=== PATIENT | female | born 1950 | race African-American/Black ===

== ENCOUNTER 2023-11-08 14:59 | Emergency (ER) | payer MEDICARE, SELFPAY ==
--- NOTE | ~2023-11-08 | XR_ITS ---
EXAMINATION: XR CHEST CLINICAL INFORMATION: Weakness COMPARISON: None available. TECHNIQUE: Frontal view of the chest was obtained. FINDINGS: The lungs are hyperinflated but clear of acute process. Heart size enlarged. Pulmonary vascularity is normal. No gross bony abnormality seen. XR/XR chest 1V IMPRESSION: 1. Hyperinflated lungs without acute process. 2. Mild cardiomegaly.
--- NOTE | 2023-11-08 15:49 | ED.GENADULT ---
HPI - General Adult General Chief complaint: General Medical Stated complaint: elevated bp,dizziness,sob Time Seen by Provider: 11/08/23 18:15 Source: patient and family Mode of arrival: ambulatory Limitations: no limitations History of Present Illness HPI narrative: Patient history of hypertension AFib on Eliquis valsartan and metoprolol been on same dosage for a while blood pressure usually well controlled yesterday evening visiting nurse came and checked the blood pressure was elevated 200/140 and again today in a.m. blood pressure recheck was elevated 200/130 patient asymptomatic as such does have slight shortness of breath on exertion used to be on furosemide which were discontinued in August no leg swelling no chest pain no palpitation Related Data Home Medications Medication Instructions Recorded Confirmed Vitamin D3 1,000 units PO DAILY 11/08/23 11/08/23 apixaban 5 mg tablet (Eliquis) 5 mg PO BEDTIME 11/08/23 11/08/23 atorvastatin 20 mg tablet 20 mg PO BEDTIME 11/08/23 11/08/23 duloxetine 60 mg capsule,delayed 60 mg PO DAILY 11/08/23 11/08/23 release lidocaine 4 % topical patch 1 patch topical DAILY PRN Mild 11/08/23 11/08/23 Pain (Scale Score 1-4) metoprolol tartrate 25 mg tablet 25 mg PO DAILY 11/08/23 11/08/23 pregabalin 150 mg capsule 150 mg PO BEDTIME 11/08/23 11/08/23 valsartan 160 mg tablet 160 mg PO DAILY 11/08/23 11/08/23 Previous Rx's Medication Instructions Recorded hydrochlorothiazide 12.5 mg tablet 12.5 mg PO QAM #90 tabs 11/08/23 Allergies Allergy/AdvReac Type Severity Reaction Status Date / Time No Known Allergies Allergy Verified 11/13/23 18:00 Review of Systems Review of Systems: Yes all other systems are reviewed and are negative PMFSH Social History Social History Smoked in Last 30 Days: No Use of substances other than those prescribed or required for medical reasons: No Advance Directives: No Advance Directives Information Provided: Yes Physical Exam ED Vital Signs: Vital Signs - 24 hr 11/08/23 15:51 11/08/23 18:16 11/08/23 18:29 Temperature 97.6 F 97.6 F Pulse Rate 97 99 89 Respiratory Rate 16 16 17 Blood Pressure 144/72 H 163/96 H 166/82 H Pulse Oximetry 97 97 Oxygen Delivery Method Room Air Room Air BMI result Body Mass Index 32.3 Appearance: Alert. Oriented X3. No acute distress. Eyes: No pallor or icterus ENT: Pharynx normal. Oral Mucosa moist Neck: Normal inspection. Neck supple. CVS: Irregularly irregular heart rate. Pulses normal. Respiratory: No respiratory distress. Equal air entry bilateral, no wheezing/rales/rhonchi Abdomen: Soft and nontender. Bowel sounds are present, no mass palpable, Skin: Skin warm and dry. Normal skin color. Normal skin turgor. Extremities: No lower extremity edema. No calf tenderness Neuro: Oriented X 3. No motor deficit. Course Course Course Narrative: RME: C/o weakness and lightheadedness. BP 200s/100s per visiting nurse. Has been compliant with medications per pt. On anticoagulants. Fall 3 months ago. Seen at [facility] and diagnosed with a brain aneurysm. Plans for management of aneurysm with preop workup being completed. Recently evaluated at [facility] Medical Decision Making Medical Decision Making [facility] Narrative: Patient with transient elevated blood pressure asymptomatic as such blood pressure improved during stay in the ER without any medication Patient repeat blood pressure 148/77 heart rate 70 will advised to continue same medications at hydrochlorothiazide 12.5 mg in a.m.. Differential Diagnosis Differential Diagnoses: The differential diagnosis associated with the presentation includes Accelerated hypertension/uncontrolled hypertension Admission/Observation Consideration of admission/observation: Escalation of care including admission/observation considered Lab Data [facility] Lab Attestation statement: I reviewed the patient's lab results. 11/08/23 16:16 11/08/23 16:16 Labs: Lab Results 11/08/23 Range/Units 16:16 WBC 10.0 (4.8-10.8) X10*3/uL RBC 3.75 L (4.20-5.50) X10*6/uL Hgb 11.4 L (12.0-16.0) g/dl Hct 34.7 L (37.0-47.0) % MCV 92.5 (80.0-98.0) fL MCH 30.4 (27.0-33.0) pg MCHC 32.9 (31.0-35.0) g/dl RDW 14.5 (11.0-16.0) % Plt Count 397 (160-400) X10*3/uL MPV 9.3 L (9.4-12.3) fL Immature Gran % (Auto) 0.5 H (0.0-0.4) % Neut % (Auto) 53.1 (45-73) % Lymph % (Auto) 35.6 (20-40) % Bates % (Auto) 8.5 (2-11) % Eos % (Auto) 1.7 (0-4) % Baso % (Auto) 0.6 (0-2) % Lymph # (Auto) 3.6 (1.2-4.9) X10*3/uL Bates # (Auto) 0.9 (0.1-1.2) X10*3/uL Eos # (Auto) 0.2 (0.0-0.4) X10*3/uL Baso # (Auto) 0.1 (0.0-0.2) X10*3/uL Abs Immat Gran (auto) 0.05 H (0.00-0.03) X10*3/uL Absolute Neuts (auto) 5.3 (2.0-8.3) x10*3/uL Absolute Nucleated RBC 0.000 (0.0-0.012) X10*3/uL Nucleated RBC % (auto) 0.0 (0.0-0.2) /100WBC Sodium 135 (135-145) mmol/L Potassium 3.6 (3.3-5.1) mmol/L Chloride 101 (96-108) mmol/L Carbon Dioxide 26 (22-29) mmol/L Anion Gap 12 (12-20) BUN 12 (9-16) mg/dL Creatinine 1.00 (0.5-1.4) mg/dL Estim Creat Clear Calc 42.8 Estimated GFR 54 Random Glucose 150 H (60-115) mg/dL Calcium 9.1 (8.4-10.2) mg/dL Total Bilirubin 0.7 (0.0-1.0) mg/dL AST 10 (5-31) U/L ALT 9 (0-31) U/L Alkaline Phosphatase 77 (39-117) U/L Troponin I High Sens 16.7 (<3.5-17.0) ng/L B-Natriuretic Peptide 353 H (<100) pg/mL Total Protein 7.2 (6.5-8.0) g/dL Albumin 3.4 L (3.5-5.0) g/dL Independent Interpretation I performed an independent interpretation of an: EKG Interpretation: Atrial fibrillation ventricular rate 84 beats per minute nonspecific ST T wave changes no acute ST elevation no acute ischemia Discharge Plan Discharge Clinical Impression: Hypertension Patient Disposition: Home, Self-Care Instructions: Chronic Hypertension (ED) Additional Instructions: Continue Lopressor 25 mg daily Start taking hydrochlorothiazide 12.5 mg daily in morning Check blood pressure before taking medication before going to bed Normal blood pressure should be less than 135/85 Follow with your PCP Prescriptions: New hydrochlorothiazide 12.5 mg tablet 12.5 mg PO QAM Qty: 90 0RF No Action atorvastatin 20 mg Tablet 20 mg PO BEDTIME lidocaine 4 % Adhesive Patch,Medicated 1 patch TOPICAL DAILY PRN (Reason: Mild Pain (Scale Score 1-4)) valsartan 160 mg Tablet 160 mg PO DAILY metoprolol tartrate 25 mg Tablet 25 mg PO DAILY duloxetine 60 mg Capsule,Delayed Release(Dr/Ec) 60 mg PO DAILY pregabalin 150 mg Capsule 150 mg PO BEDTIME Eliquis 5 mg Tablet 5 mg PO BEDTIME Vitamin D3 1,000 units PO DAILY Referrals: Piper Quintero MD [Physician] - 2 weeks Valerio Rivas MD [Physician] - 2 weeks Interventions: ED Discharge Assessment Last Done: 11/08/23 19:19 Discharge Date/Time: 11/08/23 19:20
--- NOTE | 2023-11-08 15:50 | ECG_ITS ---
Test Reason : WEAKNESS/LIGHTHEADEDNESS Blood Pressure : / mmHG Vent. Rate : 084 BPM Atrial Rate : 000 BPM P-R Int : 000 ms QRS Dur : 070 ms QT Int : 384 ms P-R-T Axes : 000 039 140 degrees QTc Int : 453 ms Atrial fibrillation Septal infarct , age undetermined ST & T wave abnormality, consider lateral ischemia Abnormal ECG No previous ECGs available Referred By: Lisa Caban Electronically Signed By:TERESITA WATERS
[2023-11-08 15:51] VITALS: BP 144/72; PULSE 97; RESP 16; TEMP 36.4; O2SAT 97; BMI 32.3
[2023-11-08 16:20] LABS: MANUAL DIFF FLAG NO
[2023-11-08 16:22] LABS: Basophils Absolute Auto 0.1 X10*3/uL (0.0-0.2); Basophils Percent Auto 0.6 % (0-2); Eosinophils Absolute Auto 0.2 X10*3/uL (0.0-0.4); Eosinophils Percent Auto 1.7 % (0-4); Hematocrit 34.7 % (37.0-47.0); Hemoglobin 11.4 g/dl (12.0-16.0); Imm Gran Abs Auto 0.05 X10*3/uL (0.00-0.03); Imm Gran Pct Auto 0.5 % (0.0-0.4); Lymphocytes Absolute Auto 3.6 X10*3/uL (1.2-4.9); Lymphocytes Percent Auto 35.6 % (20-40); Mean Corpuscular HGB Conc 32.9 g/dl (31.0-35.0); Mean Corpuscular Hemoglobin 30.4 pg (27.0-33.0); Mean Corpuscular Volume 92.5 fL (80.0-98.0); Mean Platelet Volume 9.3 fL (9.4-12.3); Monocytes Absolute Auto 0.9 X10*3/uL (0.1-1.2); Monocytes Percent Auto 8.5 % (2-11); Neutrophils Absolute Auto 5.3 x10*3/uL (2.0-8.3); Neutrophils Percent Auto 53.1 % (45-73); Platelet Count 397 X10*3/uL (160-400); Red Blood Count 3.75 X10*6/uL (4.20-5.50); Red Cell Distribution Width 14.5 % (11.0-16.0)
[2023-11-08 16:35] LABS: Alanine Aminotransferase 9 U/L (0-31); Albumin Level 3.4 g/dL (3.5-5.0); Alkaline Phosphatase 77 U/L (39-117); Anion Gap 12 (12-20); Aspartate Amino Transferase 10 U/L (5-31); Bilirubin Total 0.7 mg/dL (0.0-1.0); Blood Urea Nitrogen 12 mg/dL (9-16); Calcium 9.1 mg/dL (8.4-10.2); Carbon Dioxide 26 mmol/L (22-29); Chloride 101 mmol/L (96-108); Creatinine Clr Calc Pharmacy 42.8; Estimated Glomerular Filt Rate 54; Glucose Random 150 mg/dL (60-115); Potassium 3.6 mmol/L (3.3-5.1); Sodium 135 mmol/L (135-145); Total Protein 7.2 g/dL (6.5-8.0)
[2023-11-08 16:40] LABS: B Type Natriuretic Peptide 353 pg/mL (<100)
[2023-11-08 16:42] LABS: Troponin-I High Sensitivity 16.7 ng/L (<3.5-17.0)
[2023-11-08 18:16] VITALS: BP 163/96; PULSE 99; RESP 16; TEMP 36.4; O2SAT 97
--- NOTE | 2023-11-08 18:18 | MHC.EDTECH ---
THIS PCT JUST ASSUMED CARE OF PT ,VITALS TAKEN ,PT WAS HOOKED UP TO [facility] PERSON ,AND WAS CHANGE INTO HOSPITAL ATTIRE .
[2023-11-08 18:29] VITALS: BP 166/82; PULSE 89; RESP 17
[2023-11-08 19:18] VITALS: BP 143/73; PULSE 71; RESP 18
== END 2023-11-08 19:20 | disposition home or self-care (01) ==
LOC: HO.ED 19:02
PROVIDERS: Nurse Practitioner Family; Emergency Provider Internal Medicine
DX: R42 Dizziness and giddiness (principal); R06.02 Shortness of breath; I48.91 Unspecified atrial fibrillation; R53.1 Weakness; Z79.01 Long term (current) use of anticoagulants; Z79.899 Other long term (current) drug therapy
CPT/HCPCS: 36415; 71045; 80053; 83880; 84484; 85025; 93005; 99283; 99284

== ENCOUNTER → 2023-11-08 15:50 | Outpatient (BNV) | payer MEDICARE, SELFPAY | PROVIDERS: Emergency Provider Internal Medicine; Visit Provider Internal Medicine | DX: I48.91 Unspecified atrial fibrillation (principal); R94.31 Abnormal electrocardiogram [ECG] [EKG] | CPT/HCPCS: 93010 ==

== ENCOUNTER 2023-11-13 17:29 | Emergency (ER) | payer MEDICARE, SELFPAY ==
--- NOTE | ~2023-11-13 | CT_ITS ---
CT head/brain wo IV con CLINICAL INFORMATION: Reason for Exam Headaches, history of aneurysm, on Eliquis RO blee COMPARISON: No prior CT scan available in our system at this time TECHNIQUE: Department standard protocol. This CT examination was performed using dose optimization techniques as appropriate, variously including the following: *Automated exposure control *Adjustment of mA and/or kV according to patient size (this includes techniques or standardized protocols for targeted exams where dose is matched to indication/reason for exam; i.e. extremities or head) *Use of iterative reconstruction technique DLP: 671 mGy-cm FINDINGS: CEREBRAL HEMISPHERES: There is no evidence of intra-axial or extra-axial mass, hemorrhage or acute infarct. BRAIN PARENCHYMA: Normal roca-white matter differentiation. SUBDURAL SPACE: No bleed. BASAL GANGLIA AND PINEAL GLAND: Unremarkable VENTRICLES: Symmetric and normal in size. CEREBELLUM AND BRAINSTEM: No space-occupying mass, hemorrhage or acute infarct. CEREBELLOPONTINE ANGLES: No lesion found. ORBITS: No intraorbital mass. VESSELS: There is 1.3 cm structure at skull base adjacent to the right side of the [place] concerning for aneurysm of the [place] not well visualized due to lack of contrast, alternatively a mass. This may require correlation with follow-up contrast enhanced MRI and MRA. SKULL BASE: Enlarged pituitary gland with pituitary tissue abutting the pituitary fossa, empty sella. INCLUDED SINUSES AT SKULL BASE: Clear SKULL AND SKIN: No fracture or bone lesion found. CT/CT head/brain wo IV con IMPRESSION: 1. There is 1.3 cm structure at skull base adjacent to the right side of the [place] concerning for aneurysm of the [place] not well visualized due to lack of contrast, alternatively a mass. If no prior imaging is available, Consider further investigation with follow-up contrast enhanced MRI and MRA. 2. Enlarged pituitary gland with pituitary tissue abutting the pituitary fossa, empty sella. 3. No CT evidence of intracranial bleed. Over read by neuroradiologist requested. (Referring physician staff is being called, by physician staff assistance, to be alerted of the above critical findings and recommendations.) Opal Hurley 11/13/2023 6:46 PM
[2023-11-13 17:56] VITALS: BP 121/82; PULSE 86; RESP 18; TEMP 37.1; O2SAT 98; BMI 32.3
--- NOTE | 2023-11-13 17:58 | ED.GENADULT ---
HPI - General Adult General Chief complaint: General Medical Stated complaint: high blood pressure 200/150, seen last th Time Seen by Provider: 11/13/23 22:40 Source: patient and family Mode of arrival: ambulatory History of Present Illness HPI narrative: 73-year-old female is brought in by family members who are concerned regarding her persistently elevated blood pressure, patient is on chronic anticoagulation, has known AVM for which she has a scheduled appointment for treatment, and is typically seen through the [facility] system. The family states that they have had difficulty in getting good communication with the primary care provider but were able to follow-up with the transit authority police officer through a telehealth appointment this morning. The transit authority police officer despite the absence of focal symptoms or chest discomfort recommended that the family bring the patient in for evaluation to the emergency room. Patient has had intermittent, persistent headache/dizziness/lightheadedness. Related Data Home Medications Medication Instructions Recorded Confirmed Vitamin D3 1,000 units PO DAILY 11/08/23 11/08/23 apixaban 5 mg tablet (Eliquis) 5 mg PO BEDTIME 11/08/23 11/08/23 atorvastatin 20 mg tablet 20 mg PO BEDTIME 11/08/23 11/08/23 duloxetine 60 mg capsule,delayed 60 mg PO DAILY 11/08/23 11/08/23 release lidocaine 4 % topical patch 1 patch topical DAILY PRN Mild 11/08/23 11/08/23 Pain (Scale Score 1-4) metoprolol tartrate 25 mg tablet 25 mg PO DAILY 11/08/23 11/08/23 pregabalin 150 mg capsule 150 mg PO BEDTIME 11/08/23 11/08/23 valsartan 160 mg tablet 160 mg PO DAILY 11/08/23 11/08/23 Previous Rx's Medication Instructions Recorded hydrochlorothiazide 12.5 mg tablet 12.5 mg PO QAM #90 tabs 11/08/23 Allergies Allergy/AdvReac Type Severity Reaction Status Date / Time No Known Allergies Allergy Verified 11/13/23 18:00 Review of Systems Review of Systems: Pertinent positives and negatives as stated in the HPI [facility] Past Medical History Source: nursing notes reviewed Social History Social History Smoked in Last 30 Days: No Use of substances other than those prescribed or required for medical reasons: No Physical Exam ED Vital Signs: Vital Signs - 24 hr 11/13/23 17:56 11/13/23 22:18 11/13/23 22:55 Temperature 98.7 F 98.2 F 97.6 F Pulse Rate 86 86 96 Respiratory Rate 18 18 19 Blood Pressure 121/82 198/119 H 191/108 H Pulse Oximetry 98 96 99 Oxygen Delivery Method Room Air Room Air Room Air BMI result Body Mass Index 32.3 VITAL SIGNS: Reviewed. GENERAL: Well developed, well nourished, in no acute distress. HEAD: Normocephalic/atraumatic EYES: PERRLA, EOMI EARS: Ext canals without abnormality NOSE: Nares patent bilateral OROPHARYNX: no oral lesions noted, posterior pharynx clear and non-erythematous without noted tonsillar enlargement/erythema/exudates NECK: Supple, no adenopathy LUNGS: Normal breath sounds. No adventitious sounds or accessory muscle use. SpO2<99> CARDIOVASCULAR: Regular rate and rhythm without noted murmurs, no JVD or lower extremity edema. ABDOMEN: Soft, non-tender, non-distended with bowel sounds. MUSCULOSKELETAL: No tenderness, deformities, or effusions noted on gross inspection. EXTREMITIES: No cyanosis, clubbing or edema. SKIN: Inspection of the skin reveals no rashes NEUROLOGIC: Alert and oriented x 4. Strength and sensation to light touch were grossly intact x 4. Course Course Course Narrative: Patient complains of multiple episodes of light-headedness dizziness and shortness of breath, as well as headaches which have been coming and going over past 2 weeks She called her transit authority police officer dr eulalio coughlin who advised her to go to the emergency room She takes blood thinner Eliquis and is compliant Head CT EKG and labs are ordered This is rapid medical exam done in triage pending full ER evaluation and disposition by ER staff Medical Decision Making Medical Decision Making MDM Narrative: 73-year-old female with history and clinical presentation of persistent hypertension without focal findings. Patient is not had her evening blood pressure medication, did provide prescribed valsartan and Eliquis. I reviewed all investigations and hematologic indices are negative for leukocytosis or left shift, there is a chronically stable normocytic anemia likely of chronic disease as there is no history clinical findings to suggest acute bleeding and no evidence of thrombocytopenia. Coagulation studies are elevated secondary to chronic use of Eliquis. Chemistry indices to not demonstrate an VALERIE or electrolyte/liver enzymes derangements. High sensitivity troponin although detectable is not elevated and there are no acute EKG changes and no complaints of chest pain. Urinalysis is negative for UTI or hematuria. CT of the head demonstrates known findings of aneurysms but otherwise no intracranial hemorrhage or mass effect. My interpretation is that patient has poorly-controlled high blood pressure without focal findings and no evidence to suggest ACS. Patient will receive her scheduled dose of valsartan and Eliquis for the evening and I have discussed with the family at bedside that I will increase the hydrochlorothiazide to 25 mg at this time. They were strongly encouraged to follow up with the transit authority police officer for further medication adjustment Differential Diagnosis Differential Diagnoses: The differential diagnosis associated with the presentation includes Please see the discussion above Admission/Observation Consideration of admission/observation: Escalation of care including admission/observation considered Please see the discussion above Lab Data MDM Lab Attestation statement: I reviewed the patient's lab results. Please see the discussion above 11/13/23 18:50 11/13/23 18:50 Labs: Lab Results 11/13/23 11/13/23 Range/Units 18:50 20:56 WBC 9.6 (4.8-10.8) X10*3/uL RBC 3.69 L (4.20-5.50) X10*6/uL Hgb 10.9 L (12.0-16.0) g/dl Hct 33.9 L (37.0-47.0) % MCV 91.9 (80.0-98.0) fL MCH 29.5 (27.0-33.0) pg MCHC 32.2 (31.0-35.0) g/dl RDW 14.2 (11.0-16.0) % Plt Count 369 (160-400) X10*3/uL MPV 9.2 L (9.4-12.3) fL Immature Gran % (Auto) 0.6 H (0.0-0.4) % Neut % (Auto) 53.8 (45-73) % Lymph % (Auto) 35.3 (20-40) % Prowers % (Auto) 7.3 (2-11) % Eos % (Auto) 2.4 (0-4) % Baso % (Auto) 0.6 (0-2) % Lymph # (Auto) 3.4 (1.2-4.9) X10*3/uL Prowers # (Auto) 0.7 (0.1-1.2) X10*3/uL Eos # (Auto) 0.2 (0.0-0.4) X10*3/uL Baso # (Auto) 0.1 (0.0-0.2) X10*3/uL Abs Immat Gran (auto) 0.06 H (0.00-0.03) X10*3/uL Absolute Neuts (auto) 5.2 (2.0-8.3) x10*3/uL Absolute Nucleated RBC 0.000 (0.0-0.012) X10*3/uL Nucleated RBC % (auto) 0.0 (0.0-0.2) /100WBC PT 18.6 H (11.1-13.3) SEC INR 1.5 H (0.9-1.1) Sodium 135 (135-145) mmol/L Potassium 4.1 (3.3-5.1) mmol/L Chloride 101 (96-108) mmol/L Carbon Dioxide 26 (22-29) mmol/L Anion Gap 12 (12-20) BUN 12 (9-16) mg/dL Creatinine 1.04 (0.5-1.4) mg/dL Estim Creat Clear Calc 41.1 Estimated GFR 52 Random Glucose 163 H (60-115) mg/dL Calcium 9.0 (8.4-10.2) mg/dL Total Bilirubin 0.5 (0.0-1.0) mg/dL Direct Bilirubin 0.3 (0.0-0.5) mg/dL AST 13 (5-31) U/L ALT 9 (0-31) U/L Alkaline Phosphatase 83 (39-117) U/L Troponin I High Sens 8.6 (<3.5-17.0) ng/L Total Protein 7.2 (6.5-8.0) g/dL Albumin 3.4 L (3.5-5.0) g/dL Urine Color Yellow Urine Appearance Clear Urine pH 6.0 (5.0-9.0) Ur Specific Mascot <= 1.005 (1.005-1.025) Urine Protein Negative (Neg-Trace) mg/dL Urine Glucose (UA) Negative (Negative) mg/dL Urine Ketones Negative (Negative) mg/dL Urine Blood Negative (Negative) Urine Nitrite Negative (Negative) Ur Leukocyte Esterase Trace H (Negative) Urine RBC 0-2 (0-2) /HPF Urine WBC 0-5 (0-5) /HPF Ur Squamous Epith Cells 0-2 (0-2) /HPF Urine Bacteria Trace (None Seen) Hyaline Casts 0-2 (0-2) /LPF Independent Interpretation I performed an independent interpretation of an: EKG Interpretation: Atrial fibrillation without RVR, HR-87, no STEMI, QRS/QTC is within normal limits. Radiology Impression Discussion of test interpretation with radiology: I have reviewed the radiologist's reading. Radiologist Impression: Please see the discussion above External Record Review External record reviewed: Outpatient record, Prior outpatient labs and Prior outpatient radiology Chronic Conditions Patient?s care impacted by: Diabetes, Hypertension and Other Chronic anticoagulation Critical Care Time Critical Care Time Critical Care Time: Yes Total Critical Care Time: 45 Attestation: I personally attest to this time spent taking care of the patient. Discharge Plan Discharge Clinical Impression: Hypertension, uncontrolled Patient Disposition: Home, Self-Care Instructions: Hypertension (ED), DASH Eating Plan (ED) Additional Instructions: 1. I recommend giving to of the hydrochlorothiazide tablets for a total of 25 mg daily. 2. Continue all other medications, I recommend that you reach out to the transit authority police officer in the morning and let that individual no that you were evaluated here in the emergency room and request further hypertensive medication adjustment. Do not hesitate to return to the emergency room for any worsening or onset of new symptoms. Prescriptions: No Action hydrochlorothiazide 12.5 mg tablet 12.5 mg PO QAM Qty: 90 0RF atorvastatin 20 mg Tablet 20 mg PO BEDTIME lidocaine 4 % Adhesive Patch,Medicated 1 patch TOPICAL DAILY PRN (Reason: Mild Pain (Scale Score 1-4)) valsartan 160 mg Tablet 160 mg PO DAILY metoprolol tartrate 25 mg Tablet 25 mg PO DAILY duloxetine 60 mg Capsule,Delayed Release(Dr/Ec) 60 mg PO DAILY pregabalin 150 mg Capsule 150 mg PO BEDTIME Eliquis 5 mg Tablet 5 mg PO BEDTIME Vitamin D3 1,000 units PO DAILY
--- NOTE | 2023-11-13 18:02 | ECG_ITS ---
Test Reason : DIZZINESS Blood Pressure : / mmHG Vent. Rate : 087 BPM Atrial Rate : 000 BPM P-R Int : 000 ms QRS Dur : 080 ms QT Int : 368 ms P-R-T Axes : 000 046 105 degrees QTc Int : 442 ms Atrial fibrillation with premature ventricular or aberrantly conducted complexes Septal infarct (cited on or before 08-NOV-2023) Abnormal ECG When compared with ECG of 08-NOV-2023 16:06, No significant changes seen Referred By: Tony Pritchett Electronically Signed By:Omar Hazel
[2023-11-13 18:57] LABS: Basophils Absolute Auto 0.1 X10*3/uL (0.0-0.2); Basophils Percent Auto 0.6 % (0-2); Eosinophils Absolute Auto 0.2 X10*3/uL (0.0-0.4); Eosinophils Percent Auto 2.4 % (0-4); Hematocrit 33.9 % (37.0-47.0); Hemoglobin 10.9 g/dl (12.0-16.0); Imm Gran Abs Auto 0.06 X10*3/uL (0.00-0.03); Imm Gran Pct Auto 0.6 % (0.0-0.4); Lymphocytes Absolute Auto 3.4 X10*3/uL (1.2-4.9); Lymphocytes Percent Auto 35.3 % (20-40); MANUAL DIFF FLAG NO; Mean Corpuscular HGB Conc 32.2 g/dl (31.0-35.0); Mean Corpuscular Hemoglobin 29.5 pg (27.0-33.0); Mean Corpuscular Volume 91.9 fL (80.0-98.0); Mean Platelet Volume 9.2 fL (9.4-12.3); Monocytes Absolute Auto 0.7 X10*3/uL (0.1-1.2); Monocytes Percent Auto 7.3 % (2-11); Neutrophils Absolute Auto 5.2 x10*3/uL (2.0-8.3); Neutrophils Percent Auto 53.8 % (45-73); Platelet Count 369 X10*3/uL (160-400); Red Blood Count 3.69 X10*6/uL (4.20-5.50); Red Cell Distribution Width 14.2 % (11.0-16.0); White Blood Count 9.6 X10*3/uL (4.8-10.8)
[2023-11-13 19:11] LABS: Alanine Aminotransferase 9 U/L (0-31); Albumin Level 3.4 g/dL (3.5-5.0); Alkaline Phosphatase 83 U/L (39-117); Anion Gap 12 (12-20); Aspartate Amino Transferase 13 U/L (5-31); Bilirubin Direct 0.3 mg/dL (0.0-0.5); Bilirubin Total 0.5 mg/dL (0.0-1.0); Blood Urea Nitrogen 12 mg/dL (9-16); Carbon Dioxide 26 mmol/L (22-29); Chloride 101 mmol/L (96-108); Creatinine Clr Calc Pharmacy 41.1; Estimated Glomerular Filt Rate 52; Glucose Random 163 mg/dL (60-115); Potassium 4.1 mmol/L (3.3-5.1); Sodium 135 mmol/L (135-145); Total Protein 7.2 g/dL (6.5-8.0)
[2023-11-13 19:18] LABS: Troponin-I High Sensitivity 8.6 ng/L (<3.5-17.0)
[2023-11-13 19:30] LABS: INTERNATIONAL NORM RATIO 1.5 (0.9-1.1); Prothrombin Time 18.6 SEC (11.1-13.3)
[2023-11-13 21:06] LABS: Appearance Urine Clear; Color Urine Yellow; Glucose Urine UA Negative (Negative); Leukocyte Esterase Urine Trace (Negative); Nitrite Urine Negative (Negative); Specific Gravity - Urine <= 1.005 (1.005-1.025); UMIC TRIGGER UACC YES; Urine Blood Negative (Negative); Urine Ketones Negative (Negative); Urine Protein Negative (Neg-Trace)
[2023-11-13 21:15] LABS: Bacteria Urine Trace (None Seen); Hyaline Casts Urine 0-2 /LPF (0-2); RBC Urine 0-2 /HPF (0-2); Squamous Epithelial Cell Urine 0-2 /HPF (0-2); WBC Urine 0-5 /HPF (0-5)
[2023-11-13 22:18] VITALS: BP 198/119; PULSE 86; RESP 18; TEMP 36.8; O2SAT 96
--- NOTE | 2023-11-13 22:21 | PC.NURSE ---
Notable significant increase in SBP from original arrival assessment, though SBP commensurate with home testing today. Pt asymptomatic.
[2023-11-13 22:55] VITALS: BP 191/108; PULSE 96; RESP 19; TEMP 36.4; O2SAT 99
--- NOTE | 2023-11-13 23:02 | PC.NURSE ---
Pt aox3 resting with son at the bedside. Reports increased BP at home despite being compliant with BP meds daily. Current BP 191/108. Denies chest pain or sob. Placed on refuge worker. Call shaw within reach. Pending physician eval.
[2023-11-13] MEDS: hydroCHLOROthiazide 25 MG TABLET PO (23:39)
[2023-11-13] MEDS: Valsartan 160 MG TABLET PO (23:39)
[2023-11-13] MEDS: Apixaban 5 MG TABLET PO (23:39)
--- OUTSIDE RECORDS SUMMARY | 2023-11-13 23:44 | XMS_ITS | Continuity of Care Document ---
Author Name Unknown Organization [facility] Address [address] [place] [address] ve [address] [place] [address]- Care Team Providers Care Actuarial Intern Name Role Phone Adelfo CARRILLO, Jackelyn Primary Care Physician Encounter [facility] [place] Date(s): 01/28/21 - 04/28/[address] [place] [address]- Attending Physician: Brit Joel MD Referring Physician: Jackelyn Emanuel MD Allergies, Adverse Reactions, Alerts Substance Reaction Severity Status NKA Active Medications aspirin 81 mg oral enteric coated tablet 1 tablet = 81 mg, By Mouth, Daily, # 30 tablet, 0 Refills, Maintenance, EC Tablet Start Date: 11/10/11 Status: Ordered cloNIDine 0.1 mg oral tablet 0.1 mg, 1, tablet, By Mouth, 2 times a day, # 60 tablet, Refills 0, Maintenance, 04/14/19 11:53:55 EDT Start Date: 04/14/19 Status: Ordered CPAP Machine See Instructions, Maintenance, uses nightly and for napping, 03/06/17 14:16:58, Compound Start Date: 03/06/17 Status: Ordered Cymbalta 60, mg, By Mouth, Daily before dinner, 0, 0, 08/23/08 8:38:14, Print JOHN PAUL Number, [id number], Constant Indicator Start Date: 08/23/08 Status: Ordered felodipine 10 mg oral tablet, extended release 1 tablet = 10 mg, By Mouth, Daily, 0 Refills, Maintenance, 07/05/15 15:20:04 Start Date: 07/05/15 Status: Ordered Hydrocodone By Mouth, 0 Refills, Maintenance, 04/14/19 11:54:23 EDT, Partial fill upon patient request Start Date: 04/14/19 Status: Ordered Lipitor 10 mg oral tablet 1 tablet = 10 mg, By Mouth, Daily, # 30 tablet, 0 Refills, Maintenance Start Date: 03/20/16 Status: Ordered losartan 100 mg oral tablet 1 tablet = 100 mg, By Mouth, Daily, 0 Refills, Maintenance, 07/05/15 15:18:47 Start Date: 07/05/15 Status: Ordered metFORMIN 500 mg oral tablet 1 tablet = 500 mg, By Mouth, 2 times a day, # 60 tablet, 0 Refills, Maintenance, 12/27/18 13:22:17 EDT, Tablet Start Date: 12/27/18 Status: Ordered metoprolol 50 mg oral tablet, extended release 50 mg, 1, tablet, By Mouth, Daily, Refills 0, Maintenance, 02/27/17 9:57:21 Start Date: 02/27/17 Status: Ordered Readi-Cat 2 oral suspension See Instructions, Oral Contrast 2 Bottles 450 ml each Dx: Hernia, # 900 mL, 0 Refills, Maintenance,04/08/20 7:48:00 EDT, [id number], Oral Contrast; 2 Bottles 450 ml each; Dx: Hernia, 149, cm, 04/06/20 15:33:00 EDT, Height, 88.9, kg, ... Start Date: 04/08/20 Status: Ordered Problem List Condition Effective Dates Status Health Status Inform ant Diabetes(Confirmed) Active Diabetic neuropathy(Confirmed) Active Hernia of abdominal wall(Confirmed) Active Abdominal pain, lower(Confirmed) Active Obesity(Confirmed) Active Moderate somatic symptom dis order with predominant pain(Confirmed) Active Social History Social History Type Response Tobacco Use: Patient states that she quit chewing tobacco in November. She is using Nicorette Gum. Sex
--- OUTSIDE RECORDS SUMMARY | 2023-11-13 23:44 | XMS_ITS | Continuity of Care Document ---
Author Name Unknown Organization [facility] Address [address] [place] [id number]- Care Team Providers Care Hog Ribber Name Role Phone Abby Carrillo MD Primary Care Physician U navailable Encounter [facility] [place] Date(s): 05/29/19 - 09/26/19 [facility] [address] [place] [id number]- [facility] Attending Physician: Tony Hudson MD Admitting Physician: Tony Hudson MD Referring Physician: Abby Carrillo MD Allergies, Adverse Reactions, Alerts Substance Reaction [...] 02/27/17 9:57:21 Start Date: 02/27/17 Status: Ordered Problem List Condition Effective Dates [...]
--- OUTSIDE RECORDS SUMMARY | 2023-11-13 23:45 | XMS_ITS | Continuity of Care Document ---
Author Name Unknown Organization [facility] Address [address], [address] [place] [address]- Care Team Providers Care Business Services Director Name Role Phone Adelfo CARRILLO, Jackelyn Primary Care Physician Encounter [facility] [place] Date(s): 08/01/21 - [facility] [address] [place] [address]- Attending Physician: Darshana Stark MD Admitting Physician: Darshana Stark MD Referring Physician: Jackelyn Emanuel MD Allergies, [...]
--- OUTSIDE RECORDS SUMMARY | 2023-11-13 23:45 | XMS_ITS | Continuity of Care Document ---
Author Name Unknown Organization [facility] Address Unknown Care Team Providers Care Business Development Officer Name Role Phone Adelfo CARRILLO, Jackelyn Primary Care Physician Encounter [facility] [place] Date(s): 09/13/21 - 10/13/21 [facility] Attending Physician: Kylee Haji Admitting Physician: Kylee Haji Referring Physician: Kylee Haji Allergies, Adverse Reactions, Alerts No Known Allergies Medications aspirin 81 mg oral enteric coated [...]
--- OUTSIDE RECORDS SUMMARY | 2023-11-13 23:45 | XMS_ITS | Continuity of Care Document ---
Author Name Unknown Organization [facility] Address [address] [place] [address] [address] [place] [address]- Care Team Providers Care Calibration Tester Name Role Phone Adelfo CARRILLO, Rex Primary Care Physician En[facility] [place] ACCT R [id number] Date(s): 07/04/22 - 07/11/[address] [place], [place] 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 Vital Signs Most recent to oldest [Reference Range]: 1 Height 149 cm (07/04/22 4:51 PM) Weight 84.2 kg (07/04/22 4:51 PM) Pulse Rate [55-90 bpm] 60 bpm (07/04/22 4:51 PM) Body Mass Index [18.5-24.99 kg/m2] 37.93 kg/m2 *>HHI* (07/04/22 4:51 PM) Blood Pressure [90-138/55-84 mm Hg] 145/ 78mm Hg *H* (07/04/22 4:51 PM) Respiratory Rate [16-30 br/min] 16 br/mi n (07/04/22 4:51 PM) Temperature [96.8-100.4 DegF] 97.6 DegF (07/04/22 4:51 PM) Blood pressure sites Arm, left (07/04/22 4:51 PM) Temperature Route Temporal (07/04/22 4:51 PM) Weight Obtained Via Standing scale (07/04/22 4:51 PM) Social History Social History Type Response Tobacco Use: Patient states that she quit chewing tobacco in November. She is using Nicorette Gum. Other: She states that she only uses snuff, not tobacco. Sex Patient Care team information Personnel Name: Rex Emanuel MD Address: Address: [address] [place] [address]- [place]
--- OUTSIDE RECORDS SUMMARY | 2023-11-13 23:45 | XMS_ITS | Continuity of Care Document ---
Author Name Unknown Organization [facility] Address [address] [place] [address] Dri [address] [place] [address]- Care Team Providers Care Herbarium Worker Name Role Phone Virginia CARRILLO, Orion Joseph Primary Care Physician [phone] Encounter [facility] [place] Date(s): 04/28/20 - 05/28/[address] [place] [address]- [facility] Allergies, Adverse Reactions, Alerts Substance Reaction Severity [...]
--- OUTSIDE RECORDS SUMMARY | 2023-11-13 23:45 | XMS_ITS | Continuity of Care Document ---
Author Name Unknown Organization [facility] As [facility] Address [address] [place] [address] ve [address] [place] [address]- Care Team Providers Care Plate Finisher Name Role Phone Orion Coleman MD Primary Care Physician [phone] [place] [facility] [place] [id number] Date(s): 04/06/20 - 04/13/[address] [place] [address]- [facility] Attending Physician: Wisam CARRILLO, Brit Hurley Referring Physician: Orion Coleman MD Allergies, Adverse Reactions, Alerts Substance Reaction [...] symptom dis order with predominant pain(Confirmed) Active Vital Signs Most recent to oldest [Reference Range]: 1 Height 149 cm (04/06/20 3:33 PM) Weight 75.3 kg (04/06/20 3:33 PM) Pulse Rate [55-90 bpm] 65 bpm (04/06/20 3:33 PM) Body Mass Index [18.5-24.99] 33.92 *>HHI* (04/06/20 3:33 PM) Blood Pressure [90-138/55-84 mm Hg] 134/ 82mm Hg (04/06/20 3:33 PM) Respiratory Rate [16-30 br/min] 16 br/mi n (7/7/20 3:33 PM) Temperature [96.8-100.4 DegF] 97.3 DegF (04/06/20 3:33 PM) Blood pressure sites Arm, left (04/06/20 3:33 PM) Temperature Route Temporal (04/06/20 3:33 PM) Weight Obtained Via Standing scale (04/06/20 3:33 PM) Social History Social History Type Response Tobacco Use: Patient states that she quit chewing tobacco in November. She is using Nicorette Gum. Sex
--- OUTSIDE RECORDS SUMMARY | 2023-11-13 23:45 | XMS_ITS | Continuity of Care Document ---
Author Name Unknown Organization [facility] As sociates Address Unknown Care Team Providers Care Miller Head Wet Process Name Role Phone Adelfo CARRILLO, Jackelyn Primary Care Physician [place] [facility] [place] 10/18/21 - 11/17/21 [facility] Attending Physician: Kylee Haji Admitting Physician: Kylee Haji Referring Physician: yKlee Haji Allergies, Adverse Reactions, Alerts No Known [...]
--- OUTSIDE RECORDS SUMMARY | 2023-11-13 23:45 | XMS_ITS | Continuity of Care Document ---
Author Name Unknown Organization [facility] Address [address] [place] [address] [address] [place] [address]- Care Team Providers Care Superintendent Pipelines Name Role Phone Virginia CARRILLO, Orion Joseph Primary Care Physician En[place] [facility] [place] Date(s): 12/23/19 - 01/02/[address] [place] [address]- [facility] Attending Physician: Kylee Haji Admitting Physician: AdmtrKylee Referring Physician: Admtr, Kylee Allergies, Adverse Reactions, Alerts Substance Reaction Severity [...] 0 Refills, Maintenance, 07/05/15 15:20:04 Start Date: 10/5/15 Status: Ordered Hydrocodone By Mouth, 0 Refills, [...]
--- OUTSIDE RECORDS SUMMARY | 2023-11-13 23:45 | XMS_ITS | Continuity of Care Document ---
Author Name Unknown Organization [facility] As sociates Address Unknown Care Team Providers Care Corporation Secretary Name Role Phone Adelfo CARRILLO, Jackelyn Primary Care Physician Encounter [facility] [place] Date(s): 08/19/21 - 10/13/21 [facility] Attending Physician: Wisam CARRILLO, Brit Hurley Referring Physician: Jackelyn Emanuel MD Allergies, Adverse Reactions, Alerts No [...]
--- OUTSIDE RECORDS SUMMARY | 2023-11-13 23:45 | XMS_ITS | Continuity of Care Document ---
Author Name Unknown Organization [facility] As sociates Address Unknown Care Team Providers Care Financial Coach Name Role Phone Adelfo CARRILLO, Jackelyn Primary Care Physician [place] [facility] [place] Date(s): 01/03/22 - 01/10/22 [facility] Attending Physician: Brit Joel MD Referring Physician: [...] abdominal wall(Confirmed) Active Abdominal pain, lower(Confirmed) Active Obese class II(Confirmed) Active Obesity(Confirmed) Active Moderate somatic symptom dis order with predominant pain(Confirmed) Active Vital Signs Most recent to oldest [Reference Range]: 1 Height 149 cm (01/03/22 1:47 PM) Weight 88 kg (01/03/22 1:47 PM) Pulse Rate [55-90 bpm] 72 bpm (01/03/22 1:47 PM) Body Mass Index [18.5-24.99] 39.64 *>HHI* (01/03/22 1:47 PM) Blood Pressure [90-138/55-84 mm Hg] 120/ 67mm Hg (01/03/22 1:47 PM) Respiratory Rate [16-30 br/min] 16 br/mi n (01/03/22 1:47 PM) Temperature [96.8-100.4 DegF] 97.1 DegF (01/03/22 1:47 PM) Blood pressure sites Arm, right (01/03/22 1:47 PM) Temperature Route Temporal (01/03/22 1:47 PM) Weight Obtained Via Standing scale (01/03/22 1:47 PM) Social History Social History Type Response Tobacco Use: Patient states that she quit chewing tobacco in November. She is using Nicorette Gum. Sex
--- OUTSIDE RECORDS SUMMARY | 2023-11-13 23:45 | XMS_ITS | Continuity of Care Document ---
Author Name Unknown Organization [facility]etal[facility]ides [facility] Address [address] [place] [address], [address] [place] [address]- Care Team Providers Care Office Manager Receptionist Name Role Phone Jackelyn Emanuel MD Primary Care Physician Encounter [facility] [id number] Date(s): 05/18/21 - 08/26/21 [facility] [address] [facility], [address] [place] [address]- Attending Physician: Denise Arceo MD Admitting Physician: Denise Arceo MD Referring Physician: Jackelyn Emanuel MD Allergies, [...]
--- OUTSIDE RECORDS SUMMARY | 2023-11-13 23:45 | XMS_ITS | Continuity of Care Document ---
Author Name Unknown Organization [facility] As sociates Address Unknown Care Team Providers Care Jack Frame Tender Name Role Phone Adelfo CARRILLO, Jackelyn Primary Care Physician En[place] [facility] [place] Date(s): 08/18/21 - 09/17/21 [facility] Allergies, Adverse Reactions, Alerts Substance Reaction Severity [...]
--- OUTSIDE RECORDS SUMMARY | 2023-11-13 23:45 | XMS_ITS | Continuity of Care Document ---
Author Name Unknown Organization [facility] ter Address [address] [place] [address]- Care Team Providers Care Twister Tender Name Role Phone Orion Coleman MD Primary Care Physician En[place] [facility] [place] Date(s): 10/10/19 - 11/27/[address] [address]- [place] Attending Physician: Orion Coleman MD Admitting Physician: Orion Coleman MD Referring Physician: Orion Coleman MD Allergies, Adverse [...]
--- OUTSIDE RECORDS SUMMARY | 2023-11-13 23:45 | XMS_ITS | Continuity of Care Document ---
Author Name Unknown Organization [facility] ter Address [address] [place] [address]- Care Team Providers Care Dice Manager Name Role Phone Rex Emanuel MD Primary Care Physician [place] [facility] [place] Date(s): 03/07/22 - 06/07/[address] [address] Attending Physician: Lola Bergman MD Admitting Physician: Lola Bergman MD Referring Physician: Lola Bergman MD Allergies, Adverse Reactions, Alerts No Known [...] November. She is using Nicorette Gum. Sex Care Team Personnel Name: Rex Emanuel MD Address: [address] [place] [address] Rex Emanuel MD [address]
--- OUTSIDE RECORDS SUMMARY | 2023-11-13 23:45 | XMS_ITS | Continuity of Care Document ---
Author Name Unknown Organization [facility] Address [address] [place] [address] [address] [place] [address]- Care Team Providers Care Accounting Professor Name Role Phone Rex Emanuel MD Primary Care Physician Encounter [facility] [place] Date(s): 07/04/22 - 08/03/[address] [place], [place] [email or web address] Attending Physician: Kylee Haji Admitting Physician: AdmtrKylee Referring Physician: Admtr, Ar8 Allergies, Adverse Reactions, Alerts No Known Allergies [...] symptom disorder with predominant pain Confirmed Active Social History Social History Type Response Tobacco Use: Patient states that she quit chewing tobacco in November. She is using Nicorette Gum. Other: She states that she only uses snuff, not tobacco. Sex Patient Care team information Personnel Name: Rex Emanuel MD Address: Address: [address] [place] [address] Rex Emanuel MD [place], [place] [address]
--- OUTSIDE RECORDS SUMMARY | 2023-11-13 23:45 | XMS_ITS | Continuity of Care Document ---
Author Name Unknown Organization [facility] As [facility]ates Address Unknown Care Team Providers Care Insulation Engineman Name Role Phone Adelfo CARRILLO, Rex Primary Care Physician [id number] Date(s): 01/04/22 - 05/04/22 [facility] Attending Physician: Brit Joel MD [...]
--- OUTSIDE RECORDS SUMMARY | 2023-11-13 23:45 | XMS_ITS | Continuity of Care Document ---
Author Name Unknown Organization [facility] ter Address [address] [place] [address]- Care Team Providers Care Antisqueak Applier Name Role Phone Adelfo CARRILLO, Jackelyn Primary [id number] Date(s): 09/09/21 - 09/09/[address] [address]- Discharge Disposition: A-D/C Walkout Attending Physician: Not on Staff, Attending MD Admitting Physician: Not on Staff, Admitting MD Referring Physician: Not on Staff, Referring MD Allergies, Adverse Reactions, Alerts Substance Reaction [...] Most recent to oldest [Reference Range]: 1 Oxygen Saturation [94-100 %] 97 % (09/09/21 5:30 PM) Pulse Rate [55-90 bpm] 78 bpm (09/09/21 5:30 PM) Blood Pressure [90-138/55-84 mm Hg] 178/ 74mm Hg *H* (09/09/21 5:30 PM) Respiratory Rate [16-30 br/min] 18 br/mi n (09/09/21 5:30 PM) Temperature [96.8-100.4 DegF] 98.6 DegF (09/09/21 5:30 PM) Mode of Delivery (Oxygen) Room air (09/09/21 5:30 PM) Blood pressure sites Arm, left (09/09/21 5:30 PM) Temperature Route Oral (09/09/21 5:30 PM) Social History Social History Type Response Tobacco Use: Patient states that she quit chewing tobacco in November. She is using Nicorette Gum. Sex
--- OUTSIDE RECORDS SUMMARY | 2023-11-13 23:45 | XMS_ITS | Continuity of Care Document ---
Author Name Unknown Organization [facility] Address [address] [place] [address] [address] [place] [address]- Care Team Providers Care Manganese Breaker Name Role Phone Orion Coleman MD Primary Care Physician [place] [facility] [place] [id number] Date(s): 04/07/20 - 08/05/[address] [place] [address]- Attending Physician: Brit Joel MD Referring Physician: Orion Coleman MD Allergies, [...]
--- OUTSIDE RECORDS SUMMARY | 2023-11-13 23:45 | XMS_ITS | Continuity of Care Document ---
Author Name Unknown Organization [facility] Address [address], [address] [place] [address]- Care Team Providers Care Mechanical Engineering Specialist Name Role Phone Adelfo CARRILLO, Jackelyn Primary Care Physician En[facility] [place] Date(s): 06/24/21 - 07/24/21 [facility] [address] [place] [address]- Attending Physician: Darshana Stark MD Admitting Physician: [...]
--- OUTSIDE RECORDS SUMMARY | 2023-11-13 23:45 | XMS_ITS | Continuity of Care Document ---
Author Name Unknown Organization [facility] ter Address [address] [place] [address]- Care Team Providers Care Resident Inspector Name Role Phone Adelfo CARRILLO, Jackelyn Primary Care Physician [place] [facility] [place] Date(s): 11/24/20 - 06/01/[address] [address] Attending Physician: Orion Coleman MD Admitting Physician: [...]
--- OUTSIDE RECORDS SUMMARY | 2023-11-13 23:45 | XMS_ITS | Continuity of Care Document ---
Author Name Unknown Organization [facility] ter Address [address] [place] [address]- Care Team Providers Care Histology Specialist Name Role Phone Orion Coleman MD Primary Care Physician Encounter [facility] [place] Date(s): 10/27/19 - 01/14/[address] [address]- [facility] Attending Physician: Orion Coleman MD Admitting Physician: [...]
--- OUTSIDE RECORDS SUMMARY | 2023-11-13 23:45 | XMS_ITS | Continuity of Care Document ---
Author Name Unknown Organization [facility] Address [address] [place] [address] [address] [place] [address]- Care Team Providers Care Deckhand Oyster Dredge Name Role Phone Kieran Gutierres MD, Abby Primary Care Physician U navailable Encounter [facility] Date(s): 04/15/19 - 09/25/[address] [place] [address]- [facility] Attending Physician: Brit Joel MD Referring Physician: Abby Carrillo MD Allergies, [...]
--- OUTSIDE RECORDS SUMMARY | 2023-11-13 23:45 | XMS_ITS | Continuity of Care Document ---
Author Name Unknown Organization [facility] Address [address] [place] [address] [address] [place] [address]- Care Team Providers Care Hide Mill Man Name Role Phone Virginia CARRILLO, Orion Joseph Primary Care Physician [phone] Encounter [facility] [place] Date(s): 10/14/19 - 10/24/[address] [place] [address]- [facility] Attending Physician: Kylee Haji Admitting Physician: AdmtrKylee [...]
--- OUTSIDE RECORDS SUMMARY | 2023-11-13 23:45 | XMS_ITS | Continuity of Care Document ---
Author Name Unknown Organization [facility] Address [address] [place] [address]- Care Team Providers Care Turf Farm Worker Name Role Phone Virginia CARRILLO, Orion Joseph Primary Care Physician Encounter [facility] [place] Date(s): 02/11/20 - 03/12/20 [facility] [address] [place] [address] [facility] Attending Physician: Kylee Haji Admitting Physician: Kylee Haji Referring Physician: Kylee Haji Allergies, Adverse Reactions, Alerts Substance Reaction Severity [...]
--- OUTSIDE RECORDS SUMMARY | 2023-11-13 23:45 | XMS_ITS | Continuity of Care Document ---
Author Name Unknown Organization [facility] As [facility] Address [address] [place], [place] [address]i ve [address] [place] [address]- Care Team Providers Care Electrical And Instrumentation Mechanic Name Role Phone Virginia CARRILLO, Orion Joseph Primary Care Physician [place] [facility] [place] 07/06/20 - 08/05/[address] [place] [address]- Attending Physician: Kylee Haji Admitting Physician: AdmKylee montemayor Referring Physician: AdmtrKylee Allergies, Adverse Reactions, Alerts Substance Reaction Severity [...]
--- OUTSIDE RECORDS SUMMARY | 2023-11-13 23:45 | XMS_ITS | Continuity of Care Document ---
Author Name Unknown Organization [facility] Address Unknown Care Team Providers Care Cover Mat Machine Operator Name Role Phone Rex Emanuel MD Primary Care Physician En[place] [facility] [place] Date(s): 04/04/22 - 05/04/22 [facility] Attending Physician: Kylee Haji Admitting Physician: Admtr, Kylee Referring Physician: Admtr, Ar8 Allergies, Adverse Reactions, [...]
--- OUTSIDE RECORDS SUMMARY | 2023-11-13 23:45 | XMS_ITS | Continuity of Care Document ---
Author Name Unknown Organization [facility] Address [address] [place] [address]- Care Team Providers Care Clinical Product Manager Name Role Phone Virginia CARRILLO, Orion Joseph Primary Care Physician En[place] [facility] [place] ACCT R [id number] Date(s): 08/27/19 - 12/05/19 [facility] [address] [place] [address]- [facility] Attending Physician: Tony Hudson MD Admitting Physician: [...]
--- OUTSIDE RECORDS SUMMARY | 2023-11-13 23:45 | XMS_ITS | Continuity of Care Document ---
Author Name Unknown Organization [facility] Address [address] [place] [address] Dr [address] [place] [address]- Care Team Providers Care Through Freight Engineer Name Role Phone Adelfo CARRILLO, Jackelyn Primary Care Physician En[place] [facility] [place] Date(s): 03/29/21 - 04/28/[address] [place] [address]- Attending Physician: Kylee Haji Admitting Physician: AdmKylee [...]
--- OUTSIDE RECORDS SUMMARY | 2023-11-13 23:46 | XMS_ITS | Patient Health Record ---
Author Name Unknown [facility] Address [address] [place] [address] Care Team Providers Care Hooker Laster Name Role Phone Luis Alberto CARRILLO, Abby Primary Care Provider Grace Toney Diamond Unavailable [phone] ALLERGIES No Known Allergies REASON FOR REFERRAL No Information MEDICATIONS Medication SIG (Take, Route, Frequency, Duration) Notes Start Date End Date Status oxyCODONE HCl 5 MG 1 tablet as needed Orally every 6 hrs Active Omeprazole 20 MG 1 capsule Orally Once a day for 30 day(s) Not-Taking Metoprolol Succinate ER 25 MG 1 tablet Orally Once a day for 30 day(s) Active Verapamil HCl 180 MG 1 tablet in the morning with food Orally Once a day for 30 day(s) Not-Taking metFORMIN HCl ER 500 MG 1 tablet with evening meal Orally Once a day for 30 day(s) Active Valsartan-hydroCHLOR Othiazide 160-25 MG 1 tablet Orally Once a day for 30 day(s) Not-Taking Lyrica 150 MG 1 capsule Orally Once a day Active Extra Depth Orthopedic Shoes (1 Pair) with Customized Heat Molded Multidensity Innersoles (3 Pair) as directed Dx: NIDDM/Polyneuropathy (E11.42), Hammertoe Foot Deformity (M20.41,M20.42), Preulcerative Skin Lesion(s) (L85.1 01/01/2019 Not-Taking cloNIDine HCl 0.1 MG 1 tablet at bedtime Orally Once a day for 30 day(s) Not-Taking Cymbalta 60/30 mg 1 capsule Orally Once a day for 30 day(s) Not-Taking Lyrica 150 MG 1 capsule Orally Twice a day Not-Taking Salonpas-Hot 0.025 % 1 patch to skin as needed Externally Three times a day Active metFORMIN HCl 500 MG 1 tablet with meals Orally Twice a day for 30 day(s) Not-Taking Loperamide HCl 2 MG 1 capsule as needed Orally Four times a day Active Felodipine ER 10 MG 1 tablet Orally Once a day for 30 day(s) Active DULoxetine HCl 60 MG 1 capsule Orally Active Diclofenac 1% topical gel Acti ve Atorvastatin Calcium 20 MG 1 tablet Orally Once a day for 30 day(s) Active Artificial Tear Acti ve Albuterol Sulfate HFA 108 (90 Base) MCG/ACT 1 puff as needed Inhalation every 4 hrs Active Albuterol Sulfate 2.5 MG/0.5ML as directed Inhalation Active Cozaar 50 MG 1 tablet Orally Once a day for 30 day(s) Active ClearLax 17 GM/SCOOP as directed Orally Active Cipro 250 MG 1 tablet Orally every 12 hrs for 3 day(s) Active Acetaminophen Extra Strength 500 MG 1 tablet as needed Orally every 6 hrs Active Aspirin Adult Low Strength 81 MG 1 tablet Orally Once a day for 30 day(s) Not-Taking Atenolol 50 MG 1 tablet Orally Once a day for 30 day(s) Not-Taking IMMUNIZATIONS Vaccine Route Administration Date Status Comme nts Influenza Unknown 08/13/2017 Refused SOCIAL HISTORY Tobacco Use: Social History Observation Description Date Details (start date - stop date) Never Smoker NA - NA Sex Assigned At : Social History Observation Description Sex Assigned At Unknown Tobacco Use/Smoking Question Answer Notes Are you a: nonsmoker Additional Findings: Tobacco Non-User Current no n-smoker Alcohol Screen Question Answer Notes Did you have a drink containing alcohol in the p ast year? No Points 0 Interpretation Negative Tobacco use other than smoking: Question Answer Notes Are you an other tobacco user? No PROBLEMS Problem Type ICD Code Onset Dates Problem Status W/U Status Risk SNOMED Code Notes Problem Type 2 diabetes mellitus with diabetic polyneuropathy (E11.42) Active confirmed Polyneuropathy due to type 2 diabetes mellitus (656825396) PLAN OF TREATMENT Pending Test Test Name Order Date 82101-WCAMZNS NAIL, 6 OR MORE 01/01/2013 33046-YGUPQNX NAIL, 6 OR MORE 05/02/2017 20626-KAZZUJV NAIL, 6 OR MORE 08/13/2017 70395-XJMNCAO NAIL, 6 OR MORE 11/12/2017 85421-GAULXIY NAIL, 6 OR MORE 01/01/2019 21943-LIZBAOY NAIL, 6 OR MORE 09/09/2012 83100-FRIEYGB NAIL, 6 OR MORE 01/29/2017 13242-Wgvt Destruction, 1-14 01/29/2017 65086-Mbtw Destruction, 1-14 05/02/2017 00687- Debride <25 sq cm 01/17/2018 87857-LJJX SKIN LESIONS, OVER 4 01/02/20 19 00308-PDYP SKIN LESIONS, OVER 4 01/30/20 17 75167-IOMS SKIN LESIONS, OVER 4 05/02/20 17 25351-MAUL SKIN LESIONS, OVER 4 11/12/19 18 67575-CPAP SKIN LESIONS, OVER 4 08/13/20 17 71619-ECOL SKIN LESIONS, 2 TO 4 01/02/20 13 03232-EDGJ SKIN LESIONS, 2 TO 4 09/09/20 12 Insurance Providers Payer Name Payer Address Payer Phone Subscriber Number Group Number Insured Name Patient Relationship to Insured Coverage Start Date Coverage End Date [employer] [address] [address] [place] [address] [id number] Zaynab Norman Self - patient is the insured MEDICAL (GENERAL) HISTORY Medical History History ICD Code anxiety asthma Arthritis back, hip, knee pain broken bones chicken pox depression diabetes mellitus fibromyalgia gall bladder problems hypertension joint implants/screws psychiatric disorder reflux hyperlipidemia Leukocytosis Lumbago Sleep apnea Peripheral Artery Disease Proteinuria Pseudogout vision impaired , left Vitamin D deficiency Surgical History Surgery Date(Month/Year) ankle surgery - left 07/2009 section cholecystectomy tubal gall bladder cataract surgery left eye
--- OUTSIDE RECORDS SUMMARY | 2023-11-13 23:46 | XMS_ITS | Continuity of Care Document ---
Author Name Unknown Organization [facility] [employer] Address [address] [place] [address]- Care Team Providers Care Isotope Technologist Name Role Phone Adelfo CARRILLO, Jackelyn Primary Care Physician Encounter [facility] [id number] Date(s): 07/27/21 - 08/31/21 [facility] [employer] [facility] [address] [place] [address]- Attending Physician: Rosalie Mora MD Admitting Physician: Rosalie Mora MD Referring Physician: Jackelyn Emanuel MD Allergies, [...]
--- OUTSIDE RECORDS SUMMARY | 2023-11-13 23:46 | XMS_ITS | Continuity of Care Document ---
Author Name Unknown Organization [facility] Address [address] [place] [address] [address] [place] [address]- Care Team Providers Care Wildlife Veterinarian Name Role Phone [place] CARRILLO, Orion Joseph Primary Care Physician [phone] [place]counter [facility] [place] Date(s): 11/11/19 - 01/22/[address] [place] [address]- [facility] Attending Physician: Brit Joel MD Referring Physician: [...]
--- OUTSIDE RECORDS SUMMARY | 2023-11-13 23:46 | XMS_ITS | Continuity of Care Document ---
Author Name Unknown Organization [facility] ter Address [address] [place] [id number]- Care Team Providers Care Machine Stripper Cutter Name Role Phone Jackelyn Emanuel MD Primary Care Physician Encounter [facility] [place] Date(s): 09/12/21 - 11/21/[address] [id number] Attending Physician: Lola Bergman MD Admitting [...]
--- OUTSIDE RECORDS SUMMARY | 2023-11-13 23:46 | XMS_ITS | Continuity of Care Document ---
Author Name Unknown Organization [facility] [employer] [facility] Address [address], [address] [place] [address]- Care Team Providers Care Ethylbenzene Converter Operator Name Role Phone Jackelny Emanuel MD Primary Care Physician Encounter [facility] [id number] Date(s): 05/09/21 - 06/18/21 [facility] [employer] [employer] [facility] [address] [place] [address]- Attending Physician: Darshana Stark MD Admitting Physician: Darshana Stark MD Referring Physician: Franky DAMIAN, Hemalatha Amos Allergies, Adverse Reactions, Alerts Substance Reaction Severity [...]
--- OUTSIDE RECORDS SUMMARY | 2023-11-13 23:46 | XMS_ITS | Continuity of Care Document ---
Author Name Unknown Organization [facility] ter Address [address] [place] [address]- Care Team Providers Care Missile Inspector Name Role Phone Kieran Gutierres MD, Abby Primary Care Physician U navailable [place] [facility] [place] - 10/07/[address] [address] Attending Physician: Orion Coleman MD Allergies, Adverse Reactions, [...]
--- OUTSIDE RECORDS SUMMARY | 2023-11-13 23:46 | XMS_ITS | Continuity of Care Document ---
Author Name Unknown Organization [facility] Address Unknown Care Team Providers Care Picking Tech Name Role Phone Adelfo CARRILLO, Jackelyn Primary Care Physician Encounter [facility] [place] Date(s): 09/13/21 - 11/17/21 [facility] Attending Physician: Brit Joel MD [...]
[2023-11-14 00:13] VITALS: BP 197/113; PULSE 77; RESP 16
== END 2023-11-14 00:27 | disposition home or self-care (01) ==
PROVIDERS: Physician Assistant Medical; Emergency Provider Student in an Organized Health Care Education/Training Program
DX: R51.9 Headache, unspecified (principal); R42 Dizziness and giddiness; I10 Essential (primary) hypertension; R94.31 Abnormal electrocardiogram [ECG] [EKG]; I48.91 Unspecified atrial fibrillation; Z79.01 Long term (current) use of anticoagulants; Z79.899 Other long term (current) drug therapy
CPT/HCPCS: 36415; 70450; 80048; 80076; 81001; 84484; 85025; 85610; 93005; 99284

== ENCOUNTER → 2023-11-13 18:02 | Outpatient (BNV) | payer MEDICARE, SELFPAY | PROVIDERS: Emergency Provider Student in an Organized Health Care Education/Training Program; Visit Provider Internal Medicine Cardiovascular Disease | DX: I48.91 Unspecified atrial fibrillation (principal); R94.31 Abnormal electrocardiogram [ECG] [EKG] | CPT/HCPCS: 93010 ==